=== PATIENT | female | born 1995 | race Caucasian/White ===

== ENCOUNTER → 2017-09-27 | Outpatient (CLI) | payer BC ==
--- NOTE | 2017-09-27 07:58 | US ---
EXAMINATION TYPE: US liver DATE OF EXAM: 09/27/2017 COMPARISON: NONE CLINICAL HISTORY: R74.8 Abnormal serum enzyme levels. EXAM MEASUREMENTS: Liver Length: 14.5 cm Gallbladder Wall: 0.2 cm CBD: 0.4 cm Right Kidney: 9.8 x 4.4x 5.2 cm Pancreas: visualized portions wnl Liver: wnl Gallbladder: No stones seen Evidence for sonographic Benson's sign: Yes CBD: wnl Right Kidney: soft tissue density upper pole measures 2.9 x 2.1 x 3.1 cm, likely normal renal parenc hyma but mass is also possible. IMPRESSION: 1. Isoechoic rounded region within the right upper pole of the kidney that is favored to represent no rmal renal parenchyma, however could represent underlying isoechoic mass (less likely). CT renal mass protocol could be performed for further evaluation to exclude underlying mass. 2. Hepatic echotexture is within normal limits with no focal lesion identified in this patient with a bnormal serum enzyme levels.
== END | disposition home or self-care (01) ==
LOC: RADUSWWP 06:48
PROVIDERS: ATTEND Family Medicine
DX: R74.8 Abnormal levels of other serum enzymes (principal)
CPT/HCPCS: 76705

== ENCOUNTER → 2017-11-02 | Outpatient (CLI) | payer BC ==
--- NOTE | 2017-11-02 23:30 | MR ---
EXAMINATION TYPE: MR kidney wo con DATE OF EXAM: 11/02/2017 COMPARISON: NONE HISTORY: eclampsia,, see US Report Standard multiplanar, multisequence MRI departmental protocol Multiplanar, multisequence images of the abdomen were acquired. FINDINGS: There is good visualization of the kidneys. Kidneys of normal size and contour. There is no evidence of a solid renal mass. There is a 1.5 cm rounded area in the interpolar lateral left kidney with fluid fluid level. This is probably a thin walled complex cyst. There is probably proteinaceous fluid in the dependent part of the cyst. There is no hydronephrosis. There is no retroperitoneal adenopathy. Liver spleen pancreas and gallbladder appear normal. Bile ducts are not dilated. There is no ascites. There is no sign of retroperitoneal adenopathy. There is no adrenal mass. IMPRESSION: Small thin walled complex cyst in the lateral left kidney. Otherwise negative exam. No evidence of a renal mass that is suggested by the ultrasound exam a 1--18.
== END | disposition home or self-care (01) ==
LOC: RADMRIMAIN 21:10
PROVIDERS: ATTEND Family Medicine
DX: N28.1 Cyst of kidney, acquired (principal)
CPT/HCPCS: 74181

== ENCOUNTER 2017-12-15 09:45 | Day surgery (SDC) | payer BC ==
[2017-12-15 09:40] VITALS: RESP 16; TEMP 98
[~2017-12-15 09:45] MED LIST: LACTATED RINGERS 1,000 ML IV ONE
--- NOTE | 2017-12-15 10:21 | P.PCN ---
Date of Procedure: 12/15/17 Procedure(s) Performed: Preoperative diagnosis: 1-headache. 2-optic neuritis Post operative diagnoses: Same as preop diagnosis Anesthesia= moderate sedation with Versed 2 mg ,and fentanyl 100 g ,and local infiltration with lidocaine 1% 2 mL. Condition: stable Complication: none. Description of the procedure procedure risk and benefits discussed with the patient and family, consent signed. Patient and the procedure area placed in lateral position back prepped with chlorhexidine 3 times, IV sedation was given to the patient's to decrease the patient 's anxiety, local infiltration of the skin, and subcutaneous tissue with lidocaine 1% 2 mL for skin and subcu interstitial frustrations at L4 5 levels then 22-gauge Quincke-type needle advanced slowly at L4- 5 interlaminar space there was positive cerebrospinal fluid which was clear, no heme, no paresthesia ,total of 9 ML of clear cerebrospinal fluid collected in 4 different tubes 2-2-1/2 mL in each, then the needle removed and a Band-Aid applied and patient tolerated the procedure well without any complications. Opening pressure was 37 cm of water. Closing pressure was 26 cm of water Total volume removed was 9 ML. Patient was placed in the left lateral decubitus position ( left side down )
[2017-12-15 11:17] LABS: Glucose,CSF 53 mg/dL (40-70); Total Protein,CSF 35 mg/dL (12-60)
[2017-12-15 11:25] LABS: Appearance,CSF Clear; CSF Tube Number 4; Nucleated Cells, CSF 0 u/L (0-5); Red Blood Cell,CSF 0 u/L (0-10)
[2017-12-15 11:29] VITALS: BP 132/65; PULSE 75
== END 2017-12-15 11:45 | disposition home or self-care (01) ==
LOC: ORPAIN 09:45
PROVIDERS: ATTEND Specialist
DX: R51 Headache (principal); H46.9 Unspecified optic neuritis; Z88.5 Allergy status to narcotic agent; Z91.013 Allergy to seafood; Z91.048 Other nonmedicinal substance allergy status; Z68.34 Body mass index [BMI] 34.0-34.9, adult
CPT/HCPCS: 81025; 84157; 82945; 89050; 62270; J2250; J2001; J3010; 99152

== ENCOUNTER → 2019-01-05 | Outpatient (CLI) | payer BC ==
--- NOTE | 2019-01-05 13:36 | US ---
EXAMINATION TYPE: US abdomen complete DATE OF EXAM: 01/05/2019 COMPARISON: US 2017, CT 2004 CLINICAL HISTORY: R10.9 Abdominal pain. Left pelvic and flank pain, hematuria EXAM MEASUREMENTS: Liver Length: 14.1 cm Gallbladder Wall: 0.2 cm CBD: 0.3 cm Spleen: 11.6 cm Right Kidney: 10.2 x 4.7 x 4.3 cm Left Kidney: 11.0 x 5.4 x 5.7 cm Pancreas: visualized portions wnl, limited by overlying midline bowel gas Liver: wnl Gallbladder: wnl Evidence for sonographic Benson's sign: no CBD: wnl Spleen: wnl Right Kidney: 2.3 x 1.5 x 2.5cm isoechoic area mid pole seen on previous US . Probable column of Ham tin Left Kidney: 1.8 x 1.6 x 1.8cm cystic area mid pole Upper IVC: wnl Abd Aorta: wnl The liver is homogenous. The intrahepatic portion of the IVC and proximal abdominal aorta are within normal limits. There is no evidence of cholelithiasis. Common bile duct is unremarkable. The visu alized portions of the pancreas are homogenous. The spleen is unremarkable. Kidneys are symmetric a nd free of hydronephrosis. No renal lesions are seen. IMPRESSION: 1. No distinct abnormality appreciated.
--- NOTE | 2019-01-05 13:38 | US ---
EXAMINATION TYPE: US pelvic complete DATE OF EXAM: 01/05/2019 COMPARISON: CT 2004 CLINICAL HISTORY: R10.9 Abdominal pain. left pelvic and flank pain, hematuria, 3, para 1, mis carriage 2 TECHNIQUE: . Transabdominal sonographic images of the pelvis were acquired. Date of LMP: 12/31/2018 EXAM MEASUREMENTS: Uterus: 10.3 x 4.0 x 4.0 cm Endometrial Stripe: 0.4 cm Right Ovary: 2.8 x 1.7 x 1.7 cm Left Ovary: 3.3 x 1.7 x 2.1 cm 1. Uterus: anteverted, wnl 2. Endometrium: wnl 3. Right Ovary: 1.3cm follicle 4. Left Ovary: wnl 5. Bilateral Adnexa: wnl 6. Posterior cul-de-sac: wnl IMPRESSION: 1. No distinct abnormality seen.
== END | disposition home or self-care (01) ==
LOC: RADUSWWP 12:32
PROVIDERS: ATTEND Family Medicine
DX: R10.9 Unspecified abdominal pain (principal)
CPT/HCPCS: 76700; 76856

== ENCOUNTER → 2020-10-17 | Outpatient (CLI) | payer BC, OTHER ==
--- NOTE | 2020-10-17 12:53 | CT ---
EXAMINATION TYPE: CT chest wo con DATE OF EXAM: 10/17/2020 COMPARISON: NONE HISTORY: Dyspnea. Physician wanted to rule out PE, patient has anaphylactic reaction, so without perf ormed. CT DLP: 249.6 mGycm. Automated Exposure Control for Dose Reduction was Utilized. TECHNIQUE: CT scan of the thorax is performed without IV contrast. Contrast cannot be given due to p rior significant reaction FINDINGS: LUNGS: Mild anterior bibasilar linear scarring and/or atelectasis. No suspicious focal consolidation or groundglass opacity. There is no pleural effusion or pneumothorax seen bilaterally. The tracheobr onchial tree is patent. MEDIASTINUM: Lack of IV contrast is noted to limit evaluation for mediastinal and especially hilar ad enopathy. There are no definitive greater than 1 cm hilar or mediastinal lymph nodes. No cardiomega ly or pericardial effusion is seen. OTHER: No additional significant abnormality is seen. IMPRESSION: No suspicious acute pulmonary process.
== END | disposition home or self-care (01) ==
LOC: RADCTMAIN 12:16
PROVIDERS: ATTEND Physician Assistant
DX: R06.00 Dyspnea, unspecified (principal)
CPT/HCPCS: 71250